=== PATIENT | female | born 1950 | race Caucasian/White ===

== ENCOUNTER → 2016-06-22 | Outpatient (CLI) | payer BC | LOC: MC.RAD 16:33 | DX: Z12.31 Encounter for screening mammogram for malignant neoplasm of breast (principal) ==

== ENCOUNTER → 2017-06-23 | Outpatient (CLI) | payer MEDICARE, BC | LOC: MC.RAD 08:36 | DX: Z12.31 Encounter for screening mammogram for malignant neoplasm of breast (principal) ==

== ENCOUNTER → 2018-07-06 | Outpatient (CLI) | payer MEDICARE, BC | LOC: MC.RAD 09:05 | DX: Z12.31 Encounter for screening mammogram for malignant neoplasm of breast (principal) | CPT/HCPCS: G0279 ==

== ENCOUNTER → 2020-09-30 | Outpatient (CLI) | payer MEDICARE, BC | LOC: MC.RAD 15:17 | DX: Z12.31 Encounter for screening mammogram for malignant neoplasm of breast (principal) ==

== ENCOUNTER → 2021-10-14 | Outpatient (CLI) | payer MEDICARE, BC | LOC: MC.RAD 14:27 | DX: Z12.31 Encounter for screening mammogram for malignant neoplasm of breast (principal) ==

== ENCOUNTER → 2023-11-28 | Outpatient (CLI) | payer MEDICARE, BC | LOC: MC.RAD 13:05 | DX: Z12.31 Encounter for screening mammogram for malignant neoplasm of breast (principal) ==